=== PATIENT | female | born 1960 | race Caucasian/White ===

== ENCOUNTER 2021-06-05 18:04 | Emergency (ER) | payer MEDICAID ==
[~2021-06-05] VITALS: Ht 160 cm; Wt 65.5 kg
[2021-06-05] MEDS ORDERED: FLUORESCEIN SODIUM 1 MG STRIP OU ONE (18:30)
[2021-06-05] MEDS ORDERED: PROPARACAINE HCL 0.5% 15 ML OPHTHALMIC SOLUTION OU ONE (18:30)
[2021-06-05 21:15] LABS: BASOPHILS % (AUTO) 0.3 % (0.0-2.0); EOSINOPHILS % (AUTO) 0.1 % (1.0-6.0); HEMATOCRIT 44.1 % (36-46); HEMOGLOBIN 14.6 g/dL (12.0-16.0); LYMPHOCYTES # (AUTO) 1.4 K/uL (1.0-4.8); LYMPHOCYTES % (AUTO) 18.6 % (22.0-44.0); MEAN CORPUSCULAR HEMOGLOBIN 29.4 pg (26.0-34.0); MEAN CORPUSCULAR HGB CONC 33.1 G/dL (31.0-37.0); MEAN CORPUSCULAR VOLUME 89 fL (80-100); MONOCYTES # (AUTO) 0.7 K/uL (0.1-1.0); MONOCYTES % (AUTO) 8.8 % (2.0-9.0); NEUTROPHILS # (AUTO) 5.6 K/uL (1.8-7.7); NEUTROPHILS % (AUTO) 72.2 % (40.0-70.0); PLATELET COUNT (AUTO) 282 K/uL (150-450); RED BLOOD CELL COUNT(AUTO) 4.97 MIL/uL (4.00-5.20); RED CELL DISTRIBUTION WIDTH 15.2 % (11.5-14.5)
[2021-06-05] MEDS ORDERED: HYDROCODONE/ACETAMINOPHEN 5-325 MG TABLET PO ONE (21:15)
[2021-06-05 21:36] LABS: CALCIUM, TOTAL 9.4 mg/dL (8.8-10.5); POTASSIUM 3.1 mmol/L (3.5-5.1)
[2021-06-05 21:42] LABS: BILIRUBIN,TOTAL 0.8 mg/dL (0.1-1.0); TOTAL PROTEIN, SERUM 7.7 g/dL (6.4-8.2)
[2021-06-05] MEDS ORDERED: SODIUM CHLORIDE 0.9% 100 ML ONE (21:51)
[2021-06-05] MEDS ORDERED: IOHEXOL 350 MG/ML 100 ML VIAL ONE (21:52)
[2021-06-05] MEDS ORDERED: CLINDAMYCIN 600 MG/D5% WATER 50 ML IV ONE (22:00)
[2021-06-05] MEDS ORDERED: SODIUM CHLORIDE 0.9% 250 ML IV ONE (22:27)
[2021-06-05 22:30] LABS: ERYTHROCYTE SEDIMENTATION RATE 4 MM/HR (0-20)
[2021-06-05] MEDS ORDERED: POTASSIUM CHLORIDE 20 MEQ ER TABLET PO ONE (22:30)
[2021-06-06] MEDS ORDERED: CLIN-142 PO (01:08)
[2021-06-06 02:51] LABS: COVID AG,FIA SOURCE NASAL SWAB
[2021-06-06 04:30] VITALS: BP 168/90
== END 2021-06-06 05:46 | disposition short-term general hospital (02) ==
LOC: EMS 18:17
DX: L03.213 Periorbital cellulitis (principal); Z20.822 Contact with and (suspected) exposure to COVID-19
CPT/HCPCS: 36415; 70481; 80053; 85025; 85651; 87040; 87426; 96365; 99285; J3490; J7050 ×2; Q9967

== ENCOUNTER 2021-06-22 17:36 | Emergency (ER) | payer MEDICAID ==
[~2021-06-22] VITALS: Ht 160 cm; Wt 710.0 kg
[~2021-06-22 17:36] MED LIST: CLIN-142 PO
[2021-06-22 19:14] LABS: BASOPHILS % (AUTO) 1.1 % (0.0-2.0); EOSINOPHILS % (AUTO) 0.8 % (1.0-6.0); HEMATOCRIT 40.3 % (36-46); HEMOGLOBIN 13.4 g/dL (12.0-16.0); LYMPHOCYTES # (AUTO) 1.8 K/uL (1.0-4.8); LYMPHOCYTES % (AUTO) 31.3 % (22.0-44.0); MEAN CORPUSCULAR HEMOGLOBIN 29.5 pg (26.0-34.0); MEAN CORPUSCULAR HGB CONC 33.3 G/dL (31.0-37.0); MEAN CORPUSCULAR VOLUME 89 fL (80-100); MONOCYTES # (AUTO) 0.4 K/uL (0.1-1.0); MONOCYTES % (AUTO) 7.4 % (2.0-9.0); NEUTROPHILS # (AUTO) 3.4 K/uL (1.8-7.7); NEUTROPHILS % (AUTO) 59.4 % (40.0-70.0); PLATELET COUNT (AUTO) 349 K/uL (150-450); RED BLOOD CELL COUNT(AUTO) 4.55 MIL/uL (4.00-5.20); RED CELL DISTRIBUTION WIDTH 15.4 % (11.5-14.5)
[2021-06-22 19:28] LABS: PROTHROMBIN TIME 10.7 SEC (9.4-11.6)
[2021-06-22 19:47] LABS: B-TYPE NATRIURETIC PEPTIDE 44 pg/mL (0-100)
[2021-06-22 20:02] LABS: ANION GAP 6 mmol/L (8-16); CALCIUM, TOTAL 8.8 mg/dL (8.8-10.5); CARBON DIOXIDE 30 mmol/L (22-29); CHLORIDE 104 mmol/L (98-107); CREATININE 0.79 mg/dL (0.60-1.30); GLOMERULAR FILTR. RATE CALC > 60 mL/min (>60); GLUCOSE,RANDOM 91 mg/dL (70-110); SODIUM SERUM 140 mmol/L (136-145); UREA NITROGEN, BLOOD 12 mg/dL (7-18)
[2021-06-22 20:08] LABS: ALANINE AMINOTRANSFERASE 18 U/L (12-78); ALBUMIN 3.6 g/dL (3.4-5.0); ALKALINE PHOSPHATASE 88 U/L (46-116); ASPARTATE AMINOTRANSFERASE 15 U/L (15-37); BILIRUBIN,TOTAL 0.3 mg/dL (0.1-1.0); TOTAL PROTEIN, SERUM 6.7 g/dL (6.4-8.2)
[2021-06-22 20:38] LABS: APPEARANCE,URINE CLEAR (CLEAR); BILIRUBIN,URINE NEGATIVE (NEGATIVE); GLUCOSE, URINE (UA) NEGATIVE (NEGATIVE); KETONES,URINE NEGATIVE (NEGATIVE); LEUKOCYTE ESTERASE ,URINE NEGATIVE (NEGATIVE); NITRATE,URINE NEGATIVE (NEGATIVE); OCCULT BLOOD,URINE NEGATIVE (NEGATIVE); PROTEIN,URINE NEGATIVE (NEGATIVE); SPECIFIC GRAVITIY, URINE 1.005 (1.003-1.030); UROBILINOGEN,URINE <=1.0 mg/dL (<=1.0)
[2021-06-22] MEDS ORDERED: ACETAMINOPHEN 500 MG TABLET PO ONE (20:45)
[2021-06-22] MEDS ORDERED: SODIUM CHLORIDE 0.9% 1,000 ML IV ONE (20:45)
[2021-06-22] MEDS ORDERED: KETOROLAC TROMETHAMINE 30 MG/ML VIAL IVP ONE (20:45)
[2021-06-22] MEDS ORDERED: DiphenhydrAMINE HCL 50 MG/ML VIAL IVP ONE (21:45)
[2021-06-22] MEDS ORDERED: METOCLOPRAMIDE HCL 5 MG/ML 2 ML VIAL IVP ONE (21:45)
[2021-06-22] MEDS ORDERED: HYDROmorphone 2 MG/ML VIAL IVP ONE (22:45)
[2021-06-23] MEDS ORDERED: DOXY75TA14 PO (00:13)
[2021-06-23 00:41] VITALS: BP 145/85
[2021-06-23] MEDS ORDERED: DOXYCYCLINE HYCLATE 100 MG TABLET PO ONE (00:45)
== END 2021-06-23 01:18 | disposition home or self-care (01) ==
LOC: EMS 17:36
DX: L03.213 Periorbital cellulitis (principal); R07.2 Precordial pain
CPT/HCPCS: 36415; 70450; 70480; 71045; 80053; 81003; 83880; 84484; 85025; 85610; 85730; 93005; 96361; 96374; 96375; 99285; J1170; J1200; J1885; J2765; J7030